=== PATIENT | female | born 1960 | race Caucasian/White ===

== ENCOUNTER → 2018-03-01 | Outpatient (CLI) | payer MEDICAID | END | disposition home or self-care (01) | LOC: Rad HDHVI 14:13 | PROVIDERS: ATTEND Internal Medicine Cardiovascular Disease | DX: I47.1 Supraventricular tachycardia (principal); R42 Dizziness and giddiness | CPT/HCPCS: 93306 ==

== ENCOUNTER → 2018-03-09 | Outpatient (CLI) | payer MEDICAID | END | disposition home or self-care (01) | LOC: Rad HDHVI 13:04 | PROVIDERS: ATTEND Internal Medicine Cardiovascular Disease | DX: I47.1 Supraventricular tachycardia (principal); R42 Dizziness and giddiness | CPT/HCPCS: 93880 ==

== ENCOUNTER → 2018-04-18 | Outpatient (CLI) | payer MEDICAID ==
[~2018-04-18] VITALS: Ht 172.7 cm; Wt 96.2 kg
== END | disposition home or self-care (01) ==
LOC: Rad HDHVI 14:00
PROVIDERS: ATTEND Internal Medicine Cardiovascular Disease
DX: I47.1 Supraventricular tachycardia (principal); R42 Dizziness and giddiness
CPT/HCPCS: 78452; 93017; 96374; A9500